=== PATIENT | female | born 1965 | race Caucasian/White ===

== ENCOUNTER 2018-04-21 17:48 | Emergency (ER) | payer OTHER ==
[~2018-04-21] VITALS: Ht 165.1 cm; Wt 59.9 kg
[2018-04-21 17:50] VITALS: BP 123/91
--- NOTE | 2018-04-21 17:50 | NUR ---
ED Nurse Note: PT BROUGHT IN BY R27 DUE TO WITNESSED NEAR SYNCOPAL EPISODE. PT DENIES HEAD TRAUMA. PT ALSO C/O NAUSEA AND VOMITING FOLLOWING NEAR SYNCOPAL EPISODE. PT AOX4 AND IS ABLE TO RECALL THE ENTIRE EVENT.
[2018-04-21] MEDS ORDERED: AYGESTIN5 MG PO (17:51)
--- NOTE | 2018-04-21 18:09 | Emergency Room Report ---
History of Present Illness General Chief Complaint: Syncope Source: Patient Present Illness HPI Patient presents with reports of a syncopal episode Patient was at dinner with family She started feeling flushed was walking to the restroom when she had the syncopal episode patient reports that she did vomit twice as well Patient has drank some small amount of wine and likely vomited the Rachna as well At this time reports that she feels significantly better Denies any chest pain and eyes any back or flank pain Patient was feeling at appropriate health before dinner Denies any focal weakness Allergies: Coded Allergies: No Known Allergies (Unverified , 04/21/18) Patient History Past Medical History: see triage record Pertinent Family History: none Reviewed Nursing Documentation: PMH: Agreed; PSxH: Agreed Nursing Documentation-PMH Past Medical History: No History, Except For Review of Systems All Other Systems: negative except mentioned in HPI Physical Exam Vital Signs Date Time Temp Pulse Resp B/P (MAP) Pulse Ox O2 Delivery O2 Flow Rate FiO2 04/21/18 17:44 97.5 65 16 85/56 99 Room Air Sp02 EP Interpretation: reviewed, normal General Appearance: well appearing, no apparent distress Head: normocephalic, atraumatic Eyes: bilateral eye PERRL, bilateral eye EOMI ENT: hearing grossly normal, normal pharynx, TMs + canals normal, uvula midline Neck: full range of motion, supple, no meningismus, no bony tend Respiratory: lungs clear, normal breath sounds, no rhonchi, no respiratory distress, no retraction, no accessory muscle use Cardiovascular #1: normal peripheral pulses, regular rate, rhythm, no edema, no gallop, no JVD, no murmur Gastrointestinal: normal bowel sounds, non tender, soft, no mass, no organomegaly, non-distended, no guarding, no hernia, no pulsatile mass, no rebound Genitourinary: no CVA tenderness Musculoskeletal: normal inspection Neurologic: oriented x3, responsive, kitchen and bath designer III-XII nml as tested, motor strength/ tone normal, sensory intact Psychiatric: mood/affect normal Skin: normal color, no rash, warm/dry, palpation normal Lymphatic: normal inspection, no adenopathy Procedures Critical Care Time Critical Care Time 40 minutes for multiple re-evaluations Critical findings including hemoglobin level less than 8 requiring acute intervention and repeat evaluation Discussing the transfer center not including any procedural time Medical Decision Making Diagnostic Impression: Primary Impression: Syncope Additional Impression: GI bleed ER Course Patient is a fairly complex patient with multiple differential to consideration including but not limited to cardiac cardiopulmonary and vascular emergencies Patient's hemoglobin returns at 7.6 With this finding patient had a rectal exam performed There is dark stool visualized and heme positive Patient's troponin is also mildly elevated, patient however remains chest pain- free and asymptomatic Patient is still deemed stable for transfer With this patient reports that she has seen dark stool over the past 2 days as well Given the blood count that her presentation patient requires further GI consultation and inpatient care Patient is a member of [facility] remains hemodynamically stable and will require transfer and further inpatient care Labs Test 04/21/18 18:19 04/21/18 18:33 White Blood Count 7.4 K/UL (4.8-10.8) Red Blood Count 2.49 M/UL (4.20-5.40) Hemoglobin 7.6 G/DL (12.0-16.0) Hematocrit 22.9 % (37.0-47.0) Mean Corpuscular Volume 92 FL (80-99) Mean Corpuscular Hemoglobin 30.6 PG (27.0-31.0) Mean Corpuscular Hemoglobin Concent 33.3 G/DL (32.0-36.0) Red Cell Distribution Width 12.1 % (11.6-14.8) Platelet Count 221 K/UL (150-450) Mean Platelet Volume 6.3 FL (6.5-10.1) Neutrophils (%) (Auto) % (45.0-75.0) Lymphocytes (%) (Auto) % (20.0-45.0) Monocytes (%) (Auto) % (1.0-10.0) Eosinophils (%) (Auto) % (0.0-3.0) Basophils (%) (Auto) % (0.0-2.0) Sodium Level 139 MMOL/L (136-145) Potassium Level 3.9 MMOL/L (3.5-5.1) Chloride Level 105 MMOL/L (98-107) Carbon Dioxide Level 23 MMOL/L (21-32) Anion Gap 11 mmol/L (5-15) Blood Urea Nitrogen 41 mg/dL (7-18) Creatinine 0.9 MG/DL (0.55-1.30) Estimat Glomerular Filtration Rate > 60 mL/min (>60) Glucose Level 143 MG/DL (74-106) Calcium Level 7.6 MG/DL (8.5-10.1) Total Bilirubin 0.1 MG/DL (0.2-1.0) Aspartate Amino Transf (AST/SGOT) 13 U/L (15-37) Alanine Aminotransferase (ALT/SGPT) 17 U/L (12-78) Alkaline Phosphatase 27 U/L (46-116) Total Creatine Kinase 101 U/L (26-308) Creatine Kinase MB 1.6 NG/ML (0.0-3.6) Creatine Kinase MB Relative Index 1.5 Troponin I 0.081 ng/mL (0.000-0.056) Total Protein 5.7 G/DL (6.4-8.2) Albumin 3.0 G/DL (3.4-5.0) Globulin 2.7 g/dL Albumin/Globulin Ratio 1.1 (1.0-2.7) Lipase 126 U/L (73-393) Serum Alcohol < 3 mg/dL Urine Color Pale yellow Urine Appearance Slightly cloudy Urine pH 5 (4.5-8.0) Urine Specific [place] 1.020 (1.005-1.035) Urine Protein 1+ (NEGATIVE) Urine Glucose (UA) Negative (NEGATIVE) Urine Ketones Negative (NEGATIVE) Urine Blood 4+ (NEGATIVE) Urine Nitrite Negative (NEGATIVE) Urine Bilirubin Negative (NEGATIVE) Urine Urobilinogen Normal MG/DL (0.0-1.0) Urine Leukocyte Esterase Negative (NEGATIVE) EKG Diagnostic Results Rate: normal Rhythm: NSR ST Segments: no acute changes Rhythm Strip Diag. Results EP Interpretation: yes Rate: 65 Rhythm: NSR, no PVC's, no ectopy Chest X-Ray Diagnostic Results Chest X-Ray Diagnostic Results : Chest X-Ray Ordered: Yes # of Views/Limited/Complete: 1 View Indication: Chest Pain EP Interpretation: Yes Interpretation: no consolidation, no effusion, no pneumothorax Impression: No acute disease Electronically Signed by: George Evans DO Last Vital Signs Date Time Temp Pulse Resp B/P (MAP) Pulse Ox O2 Delivery O2 Flow Rate FiO2 04/21/18 17:44 97.5 65 16 85/56 99 Room Air Status: improved Disposition: XFER SHT-TRM HOSP Condition: Serious George Evans DO Apr 21, 2018 18:09
--- NOTE | 2018-04-21 18:29 | Diagnostic Imaging Report ---
EXAM: XR Chest, 1 View CLINICAL HISTORY: CP TECHNIQUE: Frontal view of the chest. COMPARISON: No relevant prior studies available. FINDINGS: Lungs: Unremarkable. No consolidation. Pleural space: Unremarkable. No pneumothorax. Heart: Unremarkable. No cardiomegaly. Mediastinum: Unremarkable. Bones/joints: Unremarkable. IMPRESSION: Normal chest x-ray.
[2018-04-21 18:48] LABS: HEMATOCRIT 22.9 % (37.0-47.0); HEMOGLOBIN 7.6 G/DL (12.0-16.0); MEAN CORPUSCULAR VOLUME 92 FL (80-99); PLATELET COUNT 221 K/UL (150-450); RED BLOOD COUNT 2.49 M/UL (4.20-5.40); RED CELL DISTRIBUTION WIDTH 12.1 % (11.6-14.8); WHITE BLOOD COUNT 7.4 K/UL (4.8-10.8)
[2018-04-21 18:56] LABS: ANION GAP 11 mmol/L (5-15); BLOOD UREA NITROGEN 41 mg/dL (7-18); CALCIUM 7.6 MG/DL (8.5-10.1); CARBON DIOXIDE 23 MMOL/L (21-32); CHLORIDE 105 MMOL/L (98-107); CREATININE 0.9 MG/DL (0.55-1.30); POTASSIUM 3.9 MMOL/L (3.5-5.1); SODIUM 139 MMOL/L (136-145)
[2018-04-21 18:56] LABS: APPEARANCE,URINE SLIGHTLY CLOUDY; BILIRUBIN, URINE NEGATIVE (NEGATIVE); COLOR,URINE PALE YELLOW; GLUCOSE, URINE (UA) NEGATIVE (NEGATIVE); KETONES,URINE NEGATIVE (NEGATIVE); LEUKOCYTE ESTERASE ,URINE NEGATIVE (NEGATIVE); NITRITE,URINE NEGATIVE (NEGATIVE); PH,URINE 5 (4.5-8.0); PROTEIN,URINE 1+ (NEGATIVE); UROBILINOGEN,URINE NORMAL MG/DL (0.0-1.0)
--- NOTE | 2018-04-21 19:06 | NUR ---
ED Nurse Note: REPORT GIVEN TO GIAN CHRISTIANSEN.
[2018-04-21 19:09] LABS: ALANINE AMINOTRANSFERASE 17 U/L (12-78); ALBUMIN/GLOBULIN RATIO 1.1 (1.0-2.7); ALKALINE PHOSPHATASE 27 U/L (46-116); ASPARTATE AMINO TRANSFERASE 13 U/L (15-37); BILIRUBIN,TOTAL 0.1 MG/DL (0.2-1.0); CKMB 1.6 NG/ML (0.0-3.6); CREATINE KINASE 101 U/L (26-308)
[2018-04-21 19:34] VITALS: BP 128/50
--- NOTE | 2018-04-21 20:06 | NUR ---
ER Nurse Note: Pt a&ox4, VSS, no signs of distress. Pt is ambulatory, no skin breakdown, no difficulty voiding. Pt denies pain and feeling dizzy. IV patent. no signs of infection. Report given to GIAN Mcclain at [facility]. Awaiting transportation, will continue to [facility].
[2018-04-21 20:30] VITALS: BP 124/56
--- NOTE | 2018-04-21 20:30 | NUR ---
ER Nurse Note: Gave report to GIAN Mcclain at [facility]. Pt a&ox4, VSS, no signs of distress. Pt IV patent, no signs of infiltration. Pt denies pain and dizziness . All belongings taken with family.
== END 2018-04-21 20:30 | disposition short-term general hospital (02) ==
LOC: EDBD 17:48 → EMR 18:21
DX: R55 Syncope and collapse (principal); K92.2 Gastrointestinal hemorrhage, unspecified
CPT/HCPCS: 36415; 71045; 80053; 81003; 82550; 82553; 83690; 84484; 85007; 85025; 93005; 96360; 99291; G0480; 80329